=== PATIENT | female | born 2000 ===

== ENCOUNTER 2022-04-30 06:21 | Inpatient (IN) | payer BC ==
[~2022-04-30] VITALS: Ht 165.1 cm; Wt 42.4 kg
--- NOTE | 2022-04-30 11:15 | NUR ---
ADMISSION NOTE: Patient was Patient was brought in by [facility] to [facility]. Patient was observed sitting in her behicle at a local gas station for 3 hours, not responding to electric gas appliances demonstrator when asked if she needed help. Family reports patient is responding to internal stimuli, starting approximately 2-3 weeks ago. It was reported that the patient was disheveled, disorganized in thought and speech and unable to verbalize access to food, clothing and longterm.
[2022-04-30] MEDS ORDERED: mag hydrox/Alum hydrox/simeth 30ml oral suspension PO PRN (11:35)
[2022-04-30] MEDS ORDERED: acetaminophen 325mg tablet PO PRN ×2 (11:35)
[2022-04-30] MEDS ORDERED: loperamide 2mg capsule PO PRN (11:35)
[2022-04-30] MEDS ORDERED: magnesium hydroxide 30ml (MOM) UD suspension PO PRN (11:35)
[2022-04-30 11:43] VITALS: BP 132/87
[2022-04-30] MEDS ORDERED: NO HOME MEDS (15:21)
[2022-04-30 19:00] VITALS: BP 121/69
[2022-04-30 20:23] LABS: BASOPHILS # (AUTO) 0.1 X10'3 (0-0.2); BASOPHILS % (AUTO) 0.7 % (0-1); EOSINOPHILS % (AUTO) 0.2 % (0-6); HEMATOCRIT 42.9 % (35.0-45.0); HEMOGLOBIN 14.6 g/dl (12.0-16.0); LYMPHOCYTES # (AUTO) 2.7 X10'3 (1.1-4.8); MEAN CORPUSCULAR VOLUME 94.2 FL (78-98); MEAN PLATELET VOLUME 9.5 FL (7.4-10.4); MONOCYTES # (AUTO) 0.8 X10'3 (0-0.9); MONOCYTES % (AUTO) 7.3 % (2-12); NEUTROPHILS # (AUTO) 7.3 X10'3 (1.8-7.7); NEUTROPHILS % (AUTO) 66.8 % (42-75); PLATELET COUNT 292 X10'3 (140-440); RED BLOOD COUNT 4.56 X10'6 (4.20-5.60); RED CELL DISTRIBUTION WIDTH 12.2 % (11.5-14.5); WHITE BLOOD COUNT 10.9 X10'3 (4.5-11.0)
[2022-04-30 20:38] LABS: ANION GAP 11 (8-16); BLOOD UREA NITROGEN 18 MG/DL (7-18); BUN/CREATININE RATIO 28.1 (6.6-38.0); CHLORIDE 100 MMOL/L (99-107); CHOL/HDL RATIO 3.2 (0.00-4.99); CHOLESTEROL 141 MG/DL (0-200); CREATININE 0.64 MG/DL (0.40-0.90); GLUCOSE 84 MG/DL (70-104); HDL CHOLESTEROL 44 MG/DL (35-60); LDL CHOLESTEROL 87 MG/DL (50-100); POTASSIUM 3.4 MMOL/L (3.5-5.1); SODIUM 138 MMOL/L (135-145); TOTAL CARBON DIOXIDE 26.7 MMOL/L (24-32); TRIGLYCERIDES 44 MG/DL (20-135); eGFR > 90 ML/MIN
[2022-04-30 20:56] LABS: HEMOGLOBIN A1C 4.9 % (4.5-6.2)
--- NOTE | 2022-05-01 05:56 | NUR ---
Nursing Progress Note: Problem: Patient was Patient was brought in by [facility] to [facility]. Patient was observed sitting in her vehicle at a local gas station for 3 hours, not responding to gas refrigerator servicer when asked if she needed help. Family reports patient is responding to internal stimuli, starting approximately 2-3 weeks ago. It was reported that the patient was disheveled, disorganized in thought and speech and unable to verbalize access to food, clothing and [facility]. Interventions: Provide medication administration & medication management; Maintained a safe & supportive environment; Clear & simple instructions; Direction & encouragement regarding performance of ADLs; monitored behaviors & maintained clear boundaries; Patient physical assessment & 1:1 patient interview; Therapeutic conversation & active listening; Patient education & monitoring. Response: Patient was received lying in bed sleeping. Patient continued to self-isolate and sleep throughout shift until roommate began having disruptive behavior and patient was moved to 323A to continue to sleep. Patient continues to be reminded to pee in cup for lab work. Patient did allow for blood to be drawn. Plan: Patient requires interruption of current crisis and will be evaluated and a treatment plan developed.
[2022-05-01 07:00] VITALS: BP 123/81
[2022-05-01] MEDS ORDERED: potassium Cl 40MEQ/1/2NS 520ml 520 ML IV PRN ×2 (07:30)
[2022-05-01] MEDS ORDERED: potassium Cl 20 mEq SR tablet PO PRN (07:30)
--- NOTE | 2022-05-01 07:39 | NUR ---
Noted low BMI of 15.6, no prior wt hx in EMR. Per RN pt appears to be more petite and have a small frame rather than cachectic. Pt did mostly refuse first 2 meals though has been confused per RN, documented as A&O x 1 and confused. Will continue to monitor for possible nutrition intervention needs. Addendum: 05/01/22 at [address] Amended: Links added.
[2022-05-01] MEDS: atomoxetine 25mg capsule PO SCH (08:00)
[2022-05-01] MEDS: lactose-reduced food (Ensure Enlive) - 237ml bottle PO SCH ×3 (08:00→18:14)
[2022-05-01] MEDS: K and/or MAG REPLACEMENT MC SCH ×2 (08:09→19:51)
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
[2022-05-01] MEDS: potassium Cl 20 mEq SR tablet PO PRN (12:24)
--- NOTE | 2022-05-01 17:09 | NUR ---
Nursing Progress Note: Problem: Patient was Patient was brought in by [facility] to [facility]. Patient was observed sitting in her vehicle at a local gas station for 3 hours, not responding to gas plant worker when asked if she needed help. Family reports patient is responding to internal stimuli, starting approximately 2-3 weeks ago. It was reported that the patient was disheveled, disorganized in thought and speech and unable to verbalize access to food, clothing and intermediate. Interventions: Provide medication administration & medication management; Maintained a safe & supportive environment; Clear & simple instructions; Direction & encouragement regarding performance of ADLs; monitored behaviors & maintained clear boundaries; Patient physical assessment & 1:1 patient interview; Therapeutic conversation & active listening; Patient education & monitoring. Response: Received patient sleeping in bed at change of shift. Patient awakened and sat in the community room off to the side by herself. Patient was eating so slowly, that it was hard to see any progress with her food intake. Explained to patient that her potassium was low, and that Dr. Coe wanted her to take potassium replacement. Patient said that she would only take the medications if Dr. Coe personally asked her to, that is my requirement. Requested that patient take her Strattera, but patient just sat it in front of her and would not take it while RN was standing there. Later, went in to check on her and she was sitting straight up in bed and appeared internally preoccupied. Asked the patient what she was thinking about, patient answered nothing. Patient asked RN while attempting 1:1, is there anything I can do for you? Twice, to end assessment. Patients step father and grandmother came to visit patient. Patient would not come into the community room to visit, sitting stiffly on her bed. She requested that he dinkey operator the [place] and talk to her, which he did and pretty soon, they were hugging. Visit did not last long, and RED Duran went to talk with family. Patient is acting paranoid and appears to struggle with anxiety. Patient refused her Strattera and Potassium today. Offered patient Ativan and she refused. Patient reports that she has not urinated today and is unable to give a urine sample since yesterday. At lunch time, patient requested to eat in her room which was granted. Patient ate approximately 25% of her carbs. She is not eating or drinking enough food and fluids. Patient refused her Ensure. Patient is being resistive with care, refusing all requests. Plan: Patient requires interruption of current crisis and will be evaluated and a treatment plan developed.
[2022-05-01 19:00] VITALS: BP 132/80
--- NOTE | 2022-05-02 05:35 | NUR ---
Nursing Progress Note: Problem: Patient was Patient was brought in by [facility] to [facility]. Patient was observed sitting in her vehicle at a local gas station for 3 hours, not responding to gas line repairer when asked if she needed help. Family reports patient is responding to internal stimuli, starting approximately 2-3 weeks ago. It was reported that the patient was disheveled, disorganized in thought and speech and unable to verbalize access to food, clothing and [facility]. Interventions: Provide medication administration & medication management; Maintained a safe & supportive environment; Clear & simple instructions; Direction & encouragement regarding performance of ADLs; monitored behaviors & maintained clear boundaries; Patient physical assessment & 1:1 patient interview; Therapeutic conversation & active listening; Patient education & monitoring. Response: Patient was found sitting on edge of bed. Nurse talked to patient about her low lab levels and informed her the wanted more labs done to figure out what's going on. When clinical lab technologist came to draw blood patient became very argumentative and stated she would allow blood to be drawn unless walked into her room and told her he wanted to get her blood drawn. Nurse tried to explain the importance of the blood drawn but patient continued to refuse. Patients last potassium read 3.4 and had been given K replacement 6hrs ago so additional K replacement was held. Plan: Patient requires interruption of current crisis and will be evaluated and a treatment plan developed.
[2022-05-02 07:49] VITALS: BP 132/86
[2022-05-02] MEDS: lactose-reduced food (Ensure Enlive) - 237ml bottle PO SCH ×3 (08:00→18:00)
[2022-05-02] MEDS: atomoxetine 25mg capsule PO SCH (08:00)
[2022-05-02] MEDS: K and/or MAG REPLACEMENT MC SCH ×2 (08:00→20:00)
--- NOTE | 2022-05-02 09:36 | NUR ---
Attempted to meet with Raiza this morning. She did not want to talk to commercial insurance underwriter and did not want to discuss why she is on the unit, "it's personal, I don't want to talk about it". She was able to respond quickly. She was laying in her bed with a blanket covering her. She just stared at commercial insurance underwriter and would not provide much information. EDDY Jones
--- NOTE | 2022-05-02 17:28 | NUR ---
Nursing Progress Note: Problem: Patient was Patient was brought in by [facility] to [facility]. Patient was observed sitting in her vehicle at a local gas station for 3 hours, not responding to rubber gasket inspector trimmer when asked if she needed help. Family reports patient is responding to internal stimuli, starting approximately 2-3 weeks ago. It was reported that the patient was disheveled, disorganized in thought and speech and unable to verbalize access to food, clothing and skilled nursing. Interventions: Provide medication administration & medication management; Maintained a safe & supportive environment; Clear & simple instructions; Direction & encouragement regarding performance of ADLs; monitored behaviors & maintained clear boundaries; Patient physical assessment & 1:1 patient interview; Therapeutic conversation & active listening; Patient education & monitoring. Response: Received patient sleeping in bed and in no distress at change of shift. Pt woke and was cooperative with vitals and returned to sleep. Pt refused AM blood draw and AM meds, stating the doctor didnt tell me I needed to do it. Pt reported that Strattera makes her mind funny and gives me headaches. Pt encouraged to eat breakfast and lunch and refused both. Pt stated I dont have too when encouraged to eat. Pt uncooperative with AM assessments, often ignoring this RNs questions. She spent most of the day in bed and sat up on edge of the bed at times. Pts grandmother called and relayed information to this RN: Grandma found mushrooms in her room; found a bag of Adderall; has been vaping and eating edibles of marijuana; reports that Pt does not have issues with food at home and eats regular meals. Pt very guarded and oppositional. Plan: Patient requires interruption of current crisis and will be evaluated and a treatment plan developed
[2022-05-02 19:00] VITALS: BP 116/81
--- NOTE | 2022-05-03 04:59 | NUR ---
Nursing Progress Note: Problem: Patient was Patient was brought in by [facility] to [facility]. Patient was observed sitting in her vehicle at a local gas station for 3 hours, not responding to methane gas collection system operator when asked if she needed help. Family reports patient is responding to internal stimuli, starting approximately 2-3 weeks ago. It was reported that the patient was disheveled, disorganized in thought and speech and unable to verbalize access to food, clothing and [facility]. Interventions: Provide medication administration & medication management; Maintained a safe & supportive environment; Clear & simple instructions; Direction & encouragement regarding performance of ADLs; monitored behaviors & maintained clear boundaries; Patient physical assessment & 1:1 patient interview; Therapeutic conversation & active listening; Patient education & monitoring. Response: Patient was found sitting in bed staring off into the distance. Patient spoke low and gave short responses. Patient self isolated in room all shift . Patient was found either sleeping or talking on the phone to family. Patient refused to participate in snack and expressed no interest in leaving room. Patient became defensive when nurse made the suggestion. Patient labs were in the low normal range so K replacement was not needed. Plan: Patient requires interruption of current crisis and will be evaluated and a treatment plan developed
[2022-05-03] MEDS: atomoxetine 25mg capsule PO SCH ×2 (08:00→08:25)
[2022-05-03] MEDS: K and/or MAG REPLACEMENT MC SCH ×2 (08:00→18:32)
[2022-05-03 08:07] VITALS: BP 107/70
[2022-05-03] MEDS: lactose-reduced food (Ensure Enlive) - 237ml bottle PO SCH ×3 (08:24→17:35)
[2022-05-03] MEDS: potassium Cl 20 mEq SR tablet PO PRN ×2 (08:34→08:38)
--- NOTE | 2022-05-03 15:40 | NUR ---
Nursing Progress Note: Problem: Patient was Patient was brought in by [facility] to [facility]. Patient was observed sitting in her vehicle at a local gas station for 3 hours, not responding to gas line servicer when asked if she needed help. Family reports patient is responding to internal stimuli, starting approximately 2-3 weeks ago. It was reported that the patient was disheveled, disorganized in thought and speech and unable to verbalize access to food, clothing and longterm. Interventions: Provide medication administration & medication management; Maintained a safe & supportive environment; Clear & simple instructions; Direction & encouragement regarding performance of ADLs; monitored behaviors & maintained clear boundaries; Patient physical assessment & 1:1 patient interview; Therapeutic conversation & active listening; Patient education & monitoring. Response: Patient was asleep at change of shift and awoken for breakfast. Patient did eat breakfast and drank some of her Protein shake. Patient refused her Strattera and told RN that this medication gave her problems and she won't take it. RN also gave patient a 20 MEQ K+ due to low K+ of 3.4. Protocol is 3 tabs. RN saw that patient only received 1. Patient stated the med was too big. RN offered to cut it in half. Patient refused. RN offered to give patient the med in liquid form. Patient refused. Patient also had her 5250 written today. Patient refused to engage with TOMASA Lucero. Patient was angry when notification of 5250 presented to patient by end polisherYESSENIA Evans who explained there is no way to evaluate patient when she won't cooperate. Plan: Patient requires interruption of current crisis and will be evaluated and a treatment plan developed
--- NOTE | 2022-05-03 19:00 | NUR ---
received report. introduced myself to patient. she was sitting up in bed. stated that she did not want her dinner tray, but would like a snack. provided sandwich, banana, yogurt and crackers. patient was cooperative and pleasant with me
[2022-05-03 20:00] VITALS: BP 117/68
--- NOTE | 2022-05-04 07:25 | NUR ---
Initial: Pt admitted w/ psychosis per EMR. Currently on Regular diet w/ refusal of most meals. Ensure Enlive TID ordered though pt has sparse consumption of those. She does sometimes participate in snacks per documentation. Per RN notes pt states that she "doesn't have to eat" when she is encouraged to, and she apparently does not have problems eating at home according to a family member. Perhaps the family would want to bring outside food and encourage her to eat. Pt documented as A&O x 1. LBM 04/30. Will continue to monitor. Recs: 1. Continue Regular diet; encourage PO and honor any food preferences 2. Ensure Enlive TID; if pt continues to mostly refuse, then d/c 3. Bowel care per rx 4. Weekly wts Addendum: 05/04/22 at [address] Amended: Links added.
[2022-05-04 07:53] VITALS: BP 126/73
[2022-05-04] MEDS: propranolol 10mg tablet PO SCH ×2 (08:00→20:17)
[2022-05-04] MEDS: K and/or MAG REPLACEMENT MC SCH ×2 (08:00→20:00)
[2022-05-04] MEDS: lactose-reduced food (Ensure Enlive) - 237ml bottle PO SCH ×3 (08:00→18:14)
[2022-05-04] MEDS: atomoxetine 25mg capsule PO SCH (08:00)
--- NOTE | 2022-05-04 15:18 | NUR ---
Nursing Progress Note: Problem: Patient was Patient was brought in by [facility] to [facility]. Patient was observed sitting in her vehicle at a local gas station for 3 hours, not responding to landfill gas technician when asked if she needed help. Family reports patient is responding to internal stimuli, starting approximately 2-3 weeks ago. It was reported that the patient was disheveled, disorganized in thought and speech and unable to verbalize access to food, clothing and nursing home. Interventions: Provide medication administration & medication management; Maintained a safe & supportive environment; Clear & simple instructions; Direction & encouragement regarding performance of ADLs; monitored behaviors & maintained clear boundaries; Patient physical assessment & 1:1 patient interview; Therapeutic conversation & active listening; Patient education & monitoring. Response: Patient was asleep at change of shift and awake before breakfast. RN went in to tell patient about breakfast arriving and patient was eating a brian cracker. RN asked patient if she wanted to eat. Patient stated yes as long as she can eat in her room. RN brought patient her tray. Patient refused blood draw and stated she would wait and speak with Dr. Coe tomorrow. Patient had a visitor today (a friend of her mother's). While she was sitting there with visitor, Beth yells out "I don't want to be here." RN heard her all the way down the [place]. RN went into [facility] room and patient was crying. Patient fell asleep before lunch and was in a deep sleep and wouldn't arouse. RN questioned patient later and asked her if someone had given her something. Patient stated "no." RN would ask patient a question about her last BM. Patient would just stare at RN and not answer. Af Plan: Patient requires interruption of current crisis and will be evaluated and a treatment plan developed
[2022-05-04 19:40] VITALS: BP 112/75
[2022-05-04] MEDS ORDERED: OLANZapine 5mg rapidly disint. tablet PO SCH (21:00)
--- NOTE | 2022-05-04 21:51 | NUR ---
Nursing Progress Note: Problem: Patient was Patient was brought in by [facility] to [facility]. Patient was observed sitting in her vehicle at a local gas station for 3 hours, not responding to gas regulator repairer when asked if she needed help. Family reports patient is responding to internal stimuli, starting approximately 2-3 weeks ago. It was reported that the patient was disheveled, disorganized in thought and speech and unable to verbalize access to food, clothing and nursing home. Interventions: Provide medication administration & medication management; Maintained a safe & supportive environment; Clear & simple instructions; Direction & encouragement regarding performance of ADLs; monitored behaviors & maintained clear boundaries; Patient physical assessment & 1:1 patient interview; Therapeutic conversation & active listening; Patient education & monitoring. Response: Pt was sitting in her room w her dinner tray and declined to eat. Pt states she doesnt like green beans. Asked pt if there was anything else I could get her and pt declined. Pts lunch tray was also in the room and not touched. Pt states she doesnt know why she here stating "My grandparents put me in here and I dont know why, I've been talking to my relatives since I was born and they know that. I was just talking to my uncle who passed so I dont know why I'm here!" Pt is guarded in response to other questions. Pt took several minutes examining her HS medication before she decided to take them. Pt is refusing lab draws until she can talk to Dr Saravanan matos. Pts potassium level has to be rechecked. Pt went to sleep after HS meds. Plan: Patient requires interruption of current crisis and will be evaluated and a treatment plan developed
[2022-05-05 08:00] VITALS: BP 121/61
[2022-05-05] MEDS: lactose-reduced food (Ensure Enlive) - 237ml bottle PO SCH ×2 (08:00→13:24)
[2022-05-05] MEDS: propranolol 10mg tablet PO SCH (08:00)
[2022-05-05] MEDS: K and/or MAG REPLACEMENT MC SCH (08:00)
[2022-05-05 10:08] LABS: ALBUMIN 3.7 G/DL (3.4-5.0); BETA HCG,QUANTITATIVE < 1.0 mIU/ml; BLOOD UREA NITROGEN 13 MG/DL (7-18); BUN/CREATININE RATIO 20.6 (6.6-38.0); CHLORIDE 102 MMOL/L (99-107); CREATININE 0.63 MG/DL (0.40-0.90); GLUCOSE 85 MG/DL (70-104); POTASSIUM 3.7 MMOL/L (3.5-5.1); TOTAL CARBON DIOXIDE 28.9 MMOL/L (24-32); eGFR > 90 ML/MIN
[2022-05-05 10:11] LABS: ANION GAP 8 (8-16); SODIUM 139 MMOL/L (135-145)
--- NOTE | 2022-05-05 12:35 | NUR ---
Spoke to Raiza's step-father, Elfego (ph# [phone]), to inquire if Raiza is able to stay with him upon discharge (Raiza reported that was her plan). Elfego said that Raiza had not talked to him about it. He reported Raiza cannot stay with him upon discharge, he is not in a place where he can do that. He also expressed concern because he has guns in the home (they are locked up). EDDY Jones
--- NOTE | 2022-05-05 13:19 | NUR ---
5250 for GD released
[2022-05-05] MEDS ORDERED: OLAN5TAB29 PO (13:40)
--- NOTE | 2022-05-05 14:06 | NUR ---
DISCHARGE Raiza was released from 5250 at her hearing today. Scheduled follow up with her PCP. Coordinated transport with [facility] who will be here at 3 PM to pick her up. Raiza provided her grandparents address as her discharge address. EDDY Jones
--- NOTE | 2022-05-05 15:15 | NUR ---
wireless store manager Note: Patient given discharge instructions and verbalized understanding. Patient ambulatory, steady gait with all her belongings. Patient is calm and cooperative. [facility] is picking up patient and taking her to her grandmother's house. RN does not believe patient's grandmother knows she is going back to her house in [place]. RED Duran, made arrangements for patient. Patient won her hearing today.
== END 2022-05-05 15:15 | disposition home or self-care (01) | DRG 885 ==
LOC: ADULT MH 11:28
PROVIDERS: ADMIT Psychiatry & Neurology Psychiatry; ATTEND Psychiatry & Neurology Psychiatry
DX: F29 Unspecified psychosis not due to a substance or known physiological condition (principal); F12.10 Cannabis abuse, uncomplicated; E87.6 Hypokalemia; F90.9 Attention-deficit hyperactivity disorder, unspecified type; M54.6 Pain in thoracic spine; R00.0 Tachycardia, unspecified; Z81.8 Family history of other mental and behavioral disorders
CPT/HCPCS: 36415; 80048; 80061; 83036; 84439; 84443; 84702; 85025; 87081